=== PATIENT | male | born 1955 | race African-American/Black ===

== ENCOUNTER 2016-09-26 07:42 | Day surgery (SDC) | payer OTHER ==
[2016-09-26] MEDS ORDERED: D5 LR 1000 ML 1,000 ML IV ONE (07:51)
[2016-09-26] MEDS ORDERED: DIPRIVAN VIAL 20 ML ONE (09:37)
[2016-09-26] MEDS ORDERED: DIPRIVAN VIAL 10 ML ONE (09:57)
[2016-09-26 10:35] VITALS: BP 123/70
== END 2016-09-26 10:25 | disposition home or self-care (01) ==
LOC: SURG1 07:42
PROVIDERS: ATTEND Internal Medicine Gastroenterology
PROC: 0DBP8ZX Excision of Rectum, Via Natural or Artificial Opening Endoscopic, Diagnostic (ICD-10-PCS; principal; 2016-09-26 10:00)
PROC: 0DJD8ZZ Inspection of Lower Intestinal Tract, Via Natural or Artificial Opening Endoscopic (ICD-10-PCS; principal; 2016-09-26 10:00)
DX: K63.5 Polyp of colon (principal); K57.30 Diverticulosis of large intestine without perforation or abscess without bleeding; K64.0 First degree hemorrhoids; Z85.038 Personal history of other malignant neoplasm of large intestine
CPT/HCPCS: A4217; J3490; J7120

== ENCOUNTER 2017-08-08 21:42 | Emergency (ER) | payer OTHER ==
[2017-08-08 21:54] VITALS: BMI 33.3
--- NOTE | 2017-08-08 22:10 | DR.GENAD ---
HPI - PCP Primary Care Physician: LILLIE GIBSON - HPI Comment HPI Comment: PATIENT BP MED CHANGE. TONIGHT BP ELEVATED. DENIES HEADACHE OR DIZZINESS. - Complaint/Symptoms Chief Complaint Doctors Comments: ELEVATED BP. Chief Complaint:: PT TOOK BP AT HOME AND NOTED AT 202/139. Self Treatment fo Chief Complaint: PT TAKES HYDRALAZINE 10MG BID; PCP CHANGED PT TO HYDRALAZINE YESTERDAY. - Nurses notes reviewed Nurses Notes Review: Yes - Source History Provided: Patient - Mode of Arrival Mode of Arrival: Ambulatory - Timing Onset of Chief Complaint: 08/08/17 Came on: Suddenly - Duration Duration: Constant Duration: Days - Severity Severity: Moderate PMH - PMH Past Medical History: Yes Past Medical History: Hypertension Past Surgical History: Yes Past Surgical History Comment: PROSTATE REMOVED - Family History History of Family Medical Conditions: No - Social History Alcohol Use: None Do you use any recreational Drugs:: No Lives With: Alone Lives Where: Home - infectious screening In the last 2 months have you had wt loss of >10#?: NO Have you had fever, night sweats or hemotysis?: No Have you traveled outside the country in the last 6 months?: No Isolation: Standard ROS - Review of Systems Constitutional: No Symptoms Reported Eyes: No Symptoms Reported ENTM: No Symptoms Reported Respiratoy: No Symptoms Reported Cardiovascular: No Symptoms Reported Gastrointestinal/Abdominal: No Symptoms Reported Genitourinary: Other (LEFT SIDE PAIN). negative: Dysuria, Frequency, Hematuria Neurological: No Symptoms Reported. negative: Headache, Dizziness Musculoskeletal: No Symptoms Reported Integumentary: No Symptoms Reported Hematologic/Lymphatic: No Symptoms Reported Endocrine: No Symptoms Reported All Other Systems: Reviewed and Negative PE - Vital Signs Vitals: Temperature 98.3 F Pulse Rate [Left Brachial] 69 Pulse Rate 76 Respiratory Rate 18 Blood Pressure [Left Arm] 148/94 Blood Pressure 167/88 O2 Sat by Pulse Oximetry 95 - General Limitations: No Limitations General Appearance: Alert - Head Head Exam: Normal Inspection - Eyes Eye exam: Normal Appearance - ENT ENT Exam: Normal External Ear Exam External Ear Exam: Normal External Inspection TM/Canal Exam: Bilateral Normal Nose Exam: Normal Nose Exam Mouth Exam: Normal Inspection Throat Exam: Normal Inspection - Neck Neck Exam: Normal Inspection - Chest Chest Inspection: Symmetric Chest Wall Rise - Respiratory Respiratory Exam: Normal Lung Sounds Bilat Respiratory Exam: Bilateral Clear to Auscultation - Cardiovascular Cardiovascular Exam: Regular Rate, Normal Rhythm, Normal Heart Sounds - Abdominal Exam Abdominal Exam: Normal Bowel Sounds, Soft. negative: Tenderness - Extremities Extremities Exam: Normal Inspection - Back Back Exam: Normal Inspection - Neurologic Neurological Exam: Alert, Oriented X3 - Psychiatric Psychiatric Exam: Normal Affect, Normal Mood - Skin Skin Exam: Normal Color MDM - Differential Diagnosis Differential Diagnosis: HYPERTENSION, LEFT SIDE PAIN Course - Treatment Treatment: SEE ORDERS. PO CLONIDINE IN ED. BP IMPROVED. - Education/Counseling Education/Counseling: Patient, Education Educated On: Diagnosis, Needs for Follow Up ROR - Labs Reviewed Laboratory Results Reviewed?: Yes Laboratory: Specimen Type Clean catch urine 08/08/17 22:12 Urine Color Pale yellow (YELLOW) 08/08/17 22:12 Urine Appearance Clear (CLEAR) 08/08/17 22:12 Urine pH 6.0 (5.0 - 8.0) 08/08/17 22:12 Ur Specific [place] 1.015 (1.000-1.030) 08/08/17 22:12 Urine Protein Negative (NEGATIVE) 08/08/17 22:12 Urine Glucose (UA) Negative (NEGATIVE) 08/08/17 22:12 Urine Ketones Negative (NEGATIVE) 08/08/17 22:12 Urine Occult Blood 2+ (NEGATIVE) 08/08/17 22:12 Urine Nitrite Negative (NEGATIVE) 08/08/17 22:12 Urine Bilirubin Negative (NEGATIVE) 08/08/17 22:12 Urine Urobilinogen Normal (NORMAL) 08/08/17 22:12 Ur Leukocyte Esterase Negative (NEGATIVE) 08/08/17 22:12 Urine RBC 0-2 /HPF (NONE SEEN) 08/08/17 22:12 Urine WBC None seen /HPF (NONE SEEN) 08/08/17 22:12 Ur Squamous Epith Cells Rare /HPF (NEGATIVE) 08/08/17 22:12 Urine Bacteria Negative /HPF (NEGATIVE) 08/08/17 22:12 Ur Culture Indicated? No/not indicated 08/08/17 22:12 - Diagnosis Discharge Problem: Hypertension Qualifiers: Hypertension type: essential hypertension Qualified Code(s): I10 - Essential ( primary) hypertension - Discharge Plan Disposition: HOME, SELF-CARE Condition: Stable Prescriptions: Clonidine HCl [CATAPRES 0.1 MG TAB *] 0.1 mg PO BID PRN #60 tab PRN Reason: - Follow ups/Referrals Follow ups/Referrals: LILLIE GIBSON [Primary Care Provider] - 3 days - Instructions Instructions: Hypertension, [id number] Additional Instructions: RETURN TO ED IF WORSE. CLONIDINE 0.1MG EVERY 12HRS NEEDED FOR SYSTOLIC BP GREATER THAN 150.
[2017-08-08 22:26] LABS: BILIRUBIN,URINE NEGATIVE (NEGATIVE); BLOOD/HEMOGLOBIN,URINE 2+ (NEGATIVE); GLUCOSE, URINE NEGATIVE (NEGATIVE); KETONES,URINE NEGATIVE (NEGATIVE); LEUKOCYTE ESTERASE ,URINE NEGATIVE (NEGATIVE); NITRITES,URINE NEGATIVE (NEGATIVE); PROTEIN,URINE NEGATIVE (NEGATIVE); UROBILINOGEN,URINE NORMAL (NORMAL)
[2017-08-08 22:35] LABS: APPEARANCE,URINE CLEAR (CLEAR); COLOR,URINE PALE YELLOW (YELLOW)
[2017-08-08 22:36] LABS: BACTERIA,URINE NEGATIVE /HPF (NEGATIVE); RBC,URINE 0-2 /HPF (NONE SEEN); SQUAMOUS EPITHELIAL CELL,UR RARE /HPF (NEGATIVE)
[2017-08-08] MEDS ORDERED: CATAPRES TAB 0.1 MG PO ONE (22:38)
[2017-08-08] MEDS ORDERED: CATAPRES TAB 0.1 MG ONE (22:39)
[2017-08-08 23:52] VITALS: BP 148/94
== END 2017-08-08 23:55 | disposition home or self-care (01) ==
LOC: ER 21:55
DX: I10 Essential (primary) hypertension (principal)
CPT/HCPCS: 81001; 99282